=== PATIENT | male | born 1980 | race African-American/Black ===

== ENCOUNTER 2022-07-29 12:36 | Emergency (ER) | payer OTHER ==
[~2022-07-29] VITALS: Ht 185.4 cm; Wt 72.7 kg
[2022-07-29 12:44] VITALS: BP 140/79
[2022-07-29 13:20] LABS: BASOPHILS % 1.1 % (0.0-2.0); HEMATOCRIT. 43.1 % (42.0-52.0); HEMOGLOBIN. 14.7 g/dL (14.0-18.0); LYMPHOCYTES % 37.4 % (20.0-50.0); MEAN CORPUSCULAR HEMOGLOBIN 30.3 pg (28.0-32.0); MEAN CORPUSCULAR VOLUME 88.7 fL (80.0-94.0); MEAN PLATELET VOLUME 7.8 fl (7.4-10.4); MONOCYTES % 9.1 % (2.0-8.0); NEUTROPHILS % 48.4 % (40.0-76.0); PLATELET 180 x1000/uL (130-400); RED BLOOD CELL COUNT 4.86 mill/uL (4.7-6.1); RED CELL DISTRIBUTION WIDTH 14.3 % (11.6-14.6)
[2022-07-29 13:29] LABS: CHLORIDE 108 mEq/L (98-107)
== END 2022-07-29 19:09 | disposition home or self-care (01) ==
LOC: ER 12:36
DX: R42 Dizziness and giddiness (principal)
CPT/HCPCS: 36415; 71045; 80053; 83880; 84484; 85025; 93005; 99285

== ENCOUNTER 2024-04-25 00:18 | Emergency (ER) | payer MEDICAID, OTHER ==
[~2024-04-25] VITALS: Ht 188 cm; Wt 78.8 kg
[2024-04-25 00:33] VITALS: O2SAT 100
[2024-04-25] MEDS ORDERED: IBUP-2029 MT (02:06)
[2024-04-25] MEDS ORDERED: BENZ100C86 MT (02:06)
[2024-04-25 02:37] VITALS: BP 110/78; PULSE 63; RESP 16; TEMP 36.9; O2SAT 100
== END 2024-04-25 03:38 | disposition home or self-care (01) ==
LOC: ER 00:18
DX: J06.9 Acute upper respiratory infection, unspecified (principal); B34.9 Viral infection, unspecified
CPT/HCPCS: 99283